=== PATIENT | male | born 1970 | race Caucasian/White ===

== ENCOUNTER 2021-02-03 11:34 | Day surgery (SDC) | payer BC, SELFPAY ==
[2021-02-03 12:04] VITALS: BP 119/82; PULSE 59; RESP 16; TEMP 36.6; O2SAT 100; BMI 24.1
[2021-02-03] MEDS: Lactated Ringers 1,000 ML 100 ML IV (12:11)
--- NOTE | 2021-02-03 13:00 | IMM_PTH ---
PATIENT: KERA WORLEY LOC: EN U#:[id number] AGE/SX: 50/M ROOM: RE02/03/[address]: Dr. John Hartmann DO : 1970 BED: DIS: 02/03/2021 SPEC #: [id number] RECD: 02/04/21 12:59 STATUS: CARLTON REQ #: [id number] JACKSON: 02/03/21 13:[address]: John Hartmann DEPT: IMMUNOHISTOCHEMISTRY RECD BY: Cami Lopez ENTERED: 02/04/21 12:59 SP TYPE: IMMUNO OTHR DR: Dr. Josh Storey MD Tissues: B - Stomach, NOS Procedures: H Pylori (initial) PHYSICIAN & INSTITUTION [place] [address] SPECIMEN INFORMATION: Tissue Source: B ? Gastric antrum biopsy Clinical Info: Abdominal pain, GERD, dysphagia Specimen Number: [id number] CPT code: 01967 METHODOLOGY: Deparaffinized sections of prefer/formalin-fixed tissue or PAP/DQ stained slides are incubated with monoclonal/polyclonal antibodies/oligonucleotide probes. Localization is made via biotin free immunoperoxidase method. Appropriate controls are performed and reacted as expected. Results on target cell population are indicated in the following table: RESULTS: ANTIBODY / CLONE RESULT Block B H Pylori (polyclonal) negative These tests were developed and their performance characteristics determined by [facility]. They may not have been cleared or approved by the U.S. Food and Drug Administration. The FDA has determined that such clearance or approval is not necessary. INTERPRETATION: B. Gastric antrum, biopsy: Negative for Helicobacter pylori organisms. AM:sofia 02/05/2021
--- NOTE | 2021-02-03 13:00 | EGD_PTH ---
PATIENT: KERA WORLEY LOC: NIKO U#:[id number] AGE/SX: 50/M ROOM: RE02/03/[address]: Dr. John Hartmann DO : 1970 BED: DIS: 02/03/2021 SPEC #: [id number] RECD: 02/03/21 16:37 STATUS: CARLTON REShilpi #: [id number] JACKSON: 02/03/21 13:[address]: John Hartmann DEPT: SURGICAL PATHOLOGY RECD BY: Charley [place] ENTERED: 02/04/21 11:23 SP TYPE: EGD BIOPSY MARA DR: Dr. Josh Storey MD Tissues: A - Duodenum, NOS B - Gastric mucous membrane C - Esophagus, NOS Procedures: Special Stain Group II Surgery Specimen Level IV Alcian Blue/PAS (control) HEADER OPERATION: EGD ? PH probe (MAC) PRE-OP DIAGNOSIS: Abdominal pain, GERD, dysphagia TISSUE SUBMITTED: A ? Duodenal biopsy, B ? Gastric antrum biopsy for H. pylori and path, C ? Esophageal biopsy MICROSCOPIC DIAGNOSIS A. Duodenum, biopsy: Focal vascular congestion. No evidence of duodenitis. B. Gastric antrum, biopsy: Chronic gastritis. See comment. C. Esophagus, biopsy: Gastroesophageal junctional mucosa with mild chronic inflammation. Changes of reflux. No evidence of goblet cell metaplasia. See comment. AM:sofia 02/05/2021 COMMENT B. The results of immunohistochemistry for Helicobacter pylori will be reported separately ([id number]). C. Alcian blue/PAS stain with matched control supports the above diagnosis. MICROSCOPIC DESCRIPTION Slides are reviewed. GROSS DESCRIPTION A - Received in fixative is one container labeled with the patient's name and designated duodenal biopsy. The specimen consists of two irregular fragments of light العراقي soft tissue that in aggregate measure 1 x 0.3 x 0.2 cm. The specimen is totally submitted in one cassette. B - Received in fixative is one container labeled with the patient's name and designated gastric antrum biopsy. The specimen consists of two irregular fragments of light العراقي soft tissue that in aggregate measure 0.7 x 0.3 x 0.1 cm. The specimen is totally submitted in one cassette. C - Received in fixative is one container labeled with the patient's name and designated esophagus biopsy. The specimen consists of multiple irregular fragments of light العراقي soft tissue that in aggregate measure 1 x 0.5 x 0.1 cm. The specimen is totally submitted in one cassette. / AM:sofia 02/04/21 TC:3 CPT: 93072 x3, 88580
--- NOTE | 2021-02-03 13:26 | HP.PCM_ITS ---
History and Physical Date of Admission: 02/03/21 HPI Details: CHUYITA WORLEY, is a 50 M who presents to the office today for evaluation of heartburn and inability to eat almost any foods. He said that this has been going on for 15 years. He did have a period where he was on Prevacid and it helped his heartburn. However it stopped working and he was not placed on a another medicine. At this time he is having esophageal dysphagia and a lot of abdominal pressure with bloating in his upper abdomen. He denies any chest pain or shortness of breath. He feels as though he gets a lump in the back of his throat when his heartburn gets really bad. He did see an outside straw hat brusher that told him that everything physically look fine in his esophagus and stomach. They did not mention a hiatal hernia or any other structural abnormalities. He saw a different straw hat brusher which diagnosed him with a possible hiatal hernia and told him that he should have a Kendall fundoplication but he would not be able to swallow. At this time he is getting so nauseous and bloated that he cannot even tolerate water. He still feels heartburn at this time despite not having eaten anything for the last 12 hours. He does not recall ever having any functional study such as a gastric emptying study or any study to assess the motility of his esophagus. All other 16 review of systems are negative except as per mentioned HPI. ROS ENT ENT: Positive for difficulty swallowing Gastro GI: Positive for abdominal pain, heartburn, difficulty swallowing and vomiting Musc Musculoskeletal: Positive for back pain Donato/Lymp Hematologic/Lymphatic: Positive for easy bruising Exam Const General: cooperative and comfortable Nutritional Appearance: average body habitus and well nourished [facility] Head: normal to inspection Ears: hearing grossly normal bilaterally Nose: external nose normal Face and sinus: normal facial exam Mouth: oral mucosae normal Throat: posterior oropharynx normal Eyes General: appearance normal, both eyes and all related structures Neck Neck: normal visual inspection Chest Chest palpation & inspection: normal inspection of the chest and normal palpation of entire chest wall Resp Effort & Inspection: normal respiratory effort Auscultation: Bilateral: Clear to Auscultation Cardio Palpation: normal PMI Rate: regular rate Rhythm: regular rhythm GI Inspection: normal to inspection Auscultation: normal bowel sounds Percussion: normal to percussion Palpation: no hepatosplenomegaly Skin General: no rashes or lesions noted Neuro General: patient alert Extrem General: normal to inspection Psych Affect: normal affect Assessment and Plan Assessment and Plan (1) Abdominal pain: Plan - Dr. Lopez Friend, DO: We will perform an endoscopy to evaluate his upper GI tract. The differential diagnosis for his abdominal pain could include a hiatal hernia, gastritis, duodenitis. We will also assess him for any signs of pyloric stenosis or poor emptying of the stomach. (2) GERD (gastroesophageal reflux disease): Status: Acute Plan - Dr. John Hartmann, DO: At this time we will not start him on any acid reducing medicine via prescription. He can take famotidine [id number] or Tums as needed. Since he is not on any heartburn medicine I would like to perform a Gutierrez test off of medicines. (3) Dysphagia: Status: Acute Plan - Dr. John Hartmann, DO: We will assess his esophagus for erosive esophagitis, eosinophilic esophagitis, tortuous esophagus or Schatzki's ring. He may undergo dilation. He was explained alternatives, risk, benefits including not withstanding bleeding, infection, sepsis, perforation, need for emergency to . He will have an ASA of 1. Coding Level of Care Code Off vis,new,level 4 Diagnoses Abdominal pain R10.9 GERD (gastroesophageal reflux disease) K21.9 Dysphagia R13.10
[2021-02-03 14:02] VITALS: BP 101/69; BP 119/82; PULSE 56; RESP 16; TEMP 36.4; O2SAT 98
[2021-02-03 14:07] VITALS: BP 119/82; BP 98/63; PULSE 55; RESP 16; O2SAT 95
--- NOTE | 2021-02-03 14:07 | OP.EGD_ITS ---
Patient Name: Evert Nicholson Procedure Date: 02/03/2021 1:35 PM Date of : 1970 Age: 50 Procedure: Upper GI endoscopy Indications: Dysphagia, Heartburn Providers: John Hartmann DO Referring MD: John Hartmann DO Medicines: Propofol per Anesthesia Patient Profile: This is a 50 year old male. Refer to note in patient chart for documentation of history and physical. Patient has symptoms. The symptoms first began within the past few months. Complications: No immediate complications. Procedure: Pre-Anesthesia Assessment: - Prior to the procedure, a History and Physical was performed, and patient medications and allergies were reviewed. The patient is competent. The risks and benefits of the procedure and the sedation options and risks were discussed with the patient. All questions were answered and informed consent was obtained. Patient identification and proposed procedure were verified by the physician in the pre-procedure area. Mental Status Examination: alert and oriented. Airway Examination: normal oropharyngeal airway and neck mobility. Respiratory Examination: clear to auscultation. CV Examination: normal. Prophylactic Antibiotics: The patient does not require prophylactic antibiotics. Prior Anticoagulants: The patient has taken no previous anticoagulant or antiplatelet agents. ASA Grade Assessment: II - A patient with mild systemic disease. After reviewing the risks and benefits, the patient was deemed in satisfactory condition to undergo the procedure. The anesthesia plan was to use moderate sedation / analgesia (conscious sedation). Immediately prior to administration of medications, the patient was re-assessed for adequacy to receive sedatives. The heart rate, respiratory rate, oxygen saturations, blood pressure, adequacy of pulmonary ventilation, and response to care were monitored throughout the procedure. The physical status of the patient was re-assessed after the procedure. After obtaining informed consent, the endoscope was passed under direct vision. Throughout the procedure, the patient's blood pressure, pulse, and oxygen saturations were monitored continuously. The Endoscope was introduced through the mouth, and advanced to the second part of duodenum. The upper GI endoscopy was accomplished without difficulty. The patient tolerated the procedure well. Moderate Sedation: Moderate (conscious) sedation was administered by the endoscopy nurse and supervised by the endoscopist. The patient's oxygen saturation, heart rate, blood pressure and response to care were monitored. Total physician intraservice time was 15 minutes. Scope In: 1:45:21 PM Scope Out: 1:57:36 PM Total Procedure Duration Time 0 hours 12 minutes 15 seconds Findings: LA Grade A (one or more mucosal breaks less than 5 mm, not extending between tops of 2 mucosal folds) esophagitis was found 34 to 42 cm from the incisors. Biopsies were taken with a cold forceps for histology. Verification of patient identification for the specimen was done. Estimated blood loss was minimal. A non-obstructing and moderate Schatzki ring was found in the lower third of the esophagus. The SPENCER capsule with delivery system was introduced through the mouth and advanced into the esophagus, such that the SPENCER pH capsule was positioned 37 cm from the incisors, which was 30 cm proximal to the GE junction. The SPENCER pH capsule was then deployed and attached to the esophageal mucosa. The delivery system was then withdrawn. Endoscopy was utilized for probe placement and diagnostic evaluation. Patchy mild inflammation characterized by erosions was found in the gastric antrum. Biopsies were taken with a cold forceps for histology. Verification of patient identification for the specimen was done. Estimated blood loss was minimal. Localized mild inflammation was found in the first portion of the duodenum. Biopsies were taken with a cold forceps for histology. Verification of patient identification for the specimen was done. Estimated blood loss was minimal. Impression: - LA Grade A reflux esophagitis. Biopsied. - Non-obstructing and moderate Schatzki ring. - Chronic gastritis. Biopsied. - Duodenitis. Biopsied. - The SPENCER pH capsule was deployed. Recommendation: - Discharge patient to home. - Resume previous diet. - Continue present medications. - Await pathology results. - Repeat upper endoscopy in 1 year for surveillance. - Return to GI office in 2 weeks. Procedure Code(s): --- Professional --- 97042, Esophagogastroduodenoscopy, flexible, transoral; with biopsy, single or multiple G0500, Moderate sedation services provided by the same physician or other qualified health patient care performing a gastrointestinal endoscopic service that sedation supports, requiring the presence of an independent trained observer to assist in the monitoring of the patient's level of consciousness and physiological status; initial 15 minutes of intra-service time; patient age 5 years or older (additional time may be reported with 73063, as appropriate) CPT copyright 2017 [employer]. All rights reserved. The codes documented in this report are preliminary and upon hollow core door frame assembler review may be revised to meet current compliance requirements. John Hartmann DO 02/03/2021 2:06:33 PM This report has been signed electronically. Number of Addenda: 1 Note Initiated On: 02/03/2021 1:35 PM Addendum Number: 1 Addendum Date: 12/17/2021 4:35:23 PM MAC was used instead of moderate sedation for this patient. John Hartmann DO 12/17/2021 4:35:30 PM This report has been signed electronically.
--- NOTE | 2021-02-03 14:07 | OP.CCLET_ITS ---
12/17/2021 Josh Storey [address] [place] [address] Re : Upper GI endoscopy procedure for Evert Nicholson Dear Dr. Storey This procedure was performed on Wednesday, February 03, 2021. My impressions and recommendations are as follows: Impressions : - LA Grade A reflux esophagitis. Biopsied. - Non-obstructing and moderate Schatzki ring. - Chronic gastritis. Biopsied. - Duodenitis. Biopsied. - The SPENCER pH capsule was deployed. Recommendations : - Discharge patient to home. - Resume previous diet. - Continue present medications. - Await pathology results. - Repeat upper endoscopy in 1 year for surveillance. - Return to GI office in 2 weeks. My findings are described in the full procedure note, which is enclosed. If I can be of further assistance, please feel free to contact me at . Sincerely, John Friend, 02/03/2021 2:06:33 PM This report has been signed electronically.
[2021-02-03 14:12] VITALS: BP 119/82; BP 98/77; PULSE 55; RESP 16; O2SAT 100
[2021-02-03 14:17] VITALS: BP 105/71; BP 119/82; PULSE 43; RESP 16; TEMP 36.7; O2SAT 100
[2021-02-03 14:41] VITALS: BP 119/82
== END 2021-02-03 14:48 | disposition home or self-care (01) ==
LOC: EN 11:35 → AC 11:36
PROVIDERS: PCP Family Medicine; Referring Provider Internal Medicine Gastroenterology; Visit Provider Internal Medicine Gastroenterology
PROC: (CPT 43239; principal; 2021-02-03 12:55)
DX: K21.00 Gastro-esophageal reflux disease with esophagitis, without bleeding (principal); K22.2 Esophageal obstruction; K29.50 Unspecified chronic gastritis without bleeding; K29.80 Duodenitis without bleeding; Z20.822 Contact with and (suspected) exposure to COVID-19
CPT/HCPCS: 43239; 87426; 88305; 88313; 88342; C9803; J7120; C1769; J2405

== ENCOUNTER 2021-10-26 10:55 | Day surgery (SDC) | payer BC, SELFPAY ==
--- NOTE | 2021-10-26 11:12 | HP.PCM_ITS ---
History and Physical Date of Admission: 10/26/21 ?KERA WORLEY, is a 50 M who presents to the office today for 2 month f/u esophagitis, gastritis, duodenitis, GERD, food intolerance. He continues on PPI therapy BID. He requests ondansetron be changed from regular tablets to the disintegrating tablets which he prefers, takes ondansetron 4 mg bid, unable to stop it, it adequately controls his nausea. He is having increased sensation of food sticking in proximal esophagus, not related to specific foods. Non- obstructing moderate Schatzki ring found in Jan 2021 when Gutierrez pH was placed. At last visit he reported he had been able to add some foods, but still can have sour stomach, bloating, gassy, and feeling of esophageal swelling after meal in evening. He hasn't added any additional foods to his rotation, but he did try BBQ sauce once and it didn't cause any flare of symptoms. Food he eats: poptarts, peanut butter sandwich, turkey sandwich, cheeseburgers, corn, peas and greenbeans. He reports his GI symptoms began about 15 yrs ago when he developed an allergy to onions; he vomits if he consumes onions. He also developed intolerance to citric acid which also causes vomiting. EGD 02/09/21: Schatzki ring; Gutierrez pH study was consistent with reflux, biopsies were consistent with reflux. Not taking any NSAIDS. Uses tylenol prn for GARCIA but rarely needs it. ROS Const Constitutional: No fatigue ENT ENT: No difficulty swallowing Gastro GI: Positive for nausea/dyspepsia; No abdominal pain, belching, bloating, change in bowel habits, change in stool character, coffee ground emesis, constipation, cramping, diarrhea, heartburn, difficulty swallowing, feeling full early, excessive flatus, incontinent of stools, Vomiting blood/hematemesis, Blood in stool, loose stools, Black,tarry stools, pain with swallowing, vomiting or other Musc Musculoskeletal: No joint pain Skin Skin: No yellowing of the eye or itchy eyes Psych Psychiatric: No anxiety and No depression Endo Endocrine: No fatigue Aller/Imm Allergy/Immunologic: No itchy eyes Donato/Lymp Hematologic/Lymphatic: No easy bleeding or easy bruising Exam Const General: cooperative, healthy appearing, well developed and well groomed Quality Reporting Tobacco Screening ([facility] 138) Smoking Status: Never smoker Assessment and Plan Assessment and Plan (1) Dysphagia: ?Status:?Acute (2) GERD (gastroesophageal reflux disease): ?Status:?Acute (3) Food intolerance in adult: ?Status:?Acute ? ? ? Orders:?Orders: ? Esophagus Dual Contrast Today R13.10 ?Plan - Sydney Severino FUNDING COORDINATOR, FUNDING COORDINATOR-C: Continue PPI therapy, continue ondansetron. Get esophagram to eval for cricopharyngeal achalasia. Get repeat EGD to eval/treat esophageal stricture; will also schedule screening colonoscopy at same time. F/u 2 wks after endoscopy. Plan Details Other Medications: ?New: ? ondansetron 4 mg? PO BID 60 tabs 2RF ?Discontinued: ? pantoprazole ?? Discontinued Reason:? Order Completed 40 mg? PO BID 60 tabs 2RF ? ? ? ondansetron HCl ?? Discontinued Reason:? Pt no longer taking 4 mg? PO Q8H 90 tabs 0RF ? ? I have re-examined the patient. There are no clinical changes since date of exam.
[2021-10-26 11:18] VITALS: BP 119/70; PULSE 60; RESP 16; TEMP 36.9; O2SAT 100; BMI 22.8
[2021-10-26] MEDS: Lactated Ringers 1,000 ML 30 ML IV (11:32)
--- NOTE | 2021-10-26 12:15 | EGD_PTH ---
PATIENT: KERA WORLEY LOC: EN U#:[id number] AGE/SX: 50/M ROOM: RE10/26/[address]: Dr. John Hartmann DO : 1970 BED: DIS: 10/26/2021 SPEC #: [id number] RECD: 10/26/21 13:56 STATUS: CARLTON TIFFANI #: [id number] JACKSON: 10/26/21 12:[address]: John Hartmann DEPT: SURGICAL PATHOLOGY RECD BY: Charley Grove ENTERED: 10/27/21 08:04 SP TYPE: EGD BIOPSY DONN DR: Dr. Josh Storey MD Tissues: A - Esophagus, NOS B - Esophagus, NOS Procedures: Special Stain Group II Surgery Specimen Level IV Alcian Blue/PAS (control) HEADER OPERATION: Colonoscopy, EGD with dilation and biopsies (MAC) PRE-OP DIAGNOSIS: Dysphagia, GERD TISSUE SUBMITTED: A ? Distal esophagus biopsy, B ? Random esophagus biopsy MICROSCOPIC DIAGNOSIS A. Distal esophagus, biopsy: Gastroesophageal junctional mucosa with chronic inflammation. Focal changes of reflux. No evidence of goblet cell metaplasia. See comment. B. Esophagus, random biopsy: No pathologic change. AM:sofia 10/28/2021 COMMENT A. Alcian blue/PAS stain with matched control supports the above diagnosis. MICROSCOPIC DESCRIPTION Slides are reviewed. GROSS DESCRIPTION A - Received in fixative is one container labeled with the patient's name and designated distal esophagus biopsy. The specimen consists of two irregular fragments of light العراقي soft tissue that in aggregate measure 0.8 x 0.3 x 0.1 cm. The specimen is totally submitted in one cassette. B - Received in fixative is one container labeled with the patient's name and designated random esophagus biopsy. The specimen consists of multiple irregular fragments of light العراقي soft tissue that in aggregate measure 1 x 0.5 x 0.1 cm. The specimen is totally submitted in one cassette. / SJ:sofia 10/27/2021 TC:3 [facility]: [id number], [id number]
[2021-10-26 12:35] VITALS: BP 119/70; BP 94/53; PULSE 60; RESP 16; TEMP 36.2; O2SAT 99
--- NOTE | 2021-10-26 12:39 | OP.EGD_ITS ---
Patient Name: Evert Nicholson Procedure Date: 10/26/2021 11:54 AM Date of : 1970 Age: 50 Procedure: Upper GI endoscopy Indications: Dysphagia Providers: John Hartmann DO Medicines: Monitored Anesthesia Care Patient Profile: This is a 50 year old male. Refer to note in patient chart for documentation of history and physical. He is status post EGD for Bowie's biopsy within the past six months. Complications: No immediate complications. Procedure: Pre-Anesthesia Assessment: - Prior to the procedure, a History and Physical was performed, and patient medications and allergies were reviewed. The risks and benefits of the procedure and the sedation options and risks were discussed with the patient. All questions were answered and informed consent was obtained. Patient identification and proposed procedure were verified by the physician in the pre-procedure area. Mental Status Examination: alert and oriented. Airway Examination: normal oropharyngeal airway and neck mobility. Respiratory Examination: clear to auscultation. CV Examination: normal. Prophylactic Antibiotics: The patient does not require prophylactic antibiotics. Prior Anticoagulants: The patient has taken no previous anticoagulant or antiplatelet agents. After reviewing the risks and benefits, the patient was deemed in satisfactory condition to undergo the procedure. The anesthesia plan was to use moderate sedation / analgesia (conscious sedation). Immediately prior to administration of medications, the patient was re-assessed for adequacy to receive sedatives. The heart rate, respiratory rate, oxygen saturations, blood pressure, adequacy of pulmonary ventilation, and response to care were monitored throughout the procedure. The physical status of the patient was re-assessed after the procedure. After obtaining informed consent, the endoscope was passed under direct vision. Throughout the procedure, the patient's blood pressure, pulse, and oxygen saturations were monitored continuously. The pediatric colonoscope was introduced through the mouth, and advanced to the second part of duodenum. The upper GI endoscopy was accomplished without difficulty. The patient tolerated the procedure well. Scope In: 12:07:12 PM Scope Out: 12:14:04 PM Total Procedure Duration Time 0 hours 6 minutes 52 seconds Findings: Non-severe esophagitis with no bleeding was found 37 to 39 cm from the incisors. Biopsies were taken with a cold forceps for histology. Verification of patient identification for the specimen was done. Estimated blood loss was minimal. A moderate Schatzki ring was found in the distal esophagus. A guidewire was placed and the scope was withdrawn. Dilation was performed with a Savary dilator with no resistance at 60 Fr. The dilation site was examined following endoscope reinsertion and showed moderate improvement in luminal narrowing. Estimated blood loss: none. The entire examined stomach was normal. The cardia and gastric fundus were normal on retroflexion. The second portion of the duodenum was normal. Impression: - Non-severe chronic esophagitis. Biopsied. - Moderate Schatzki ring. Dilated. - Normal stomach. - Normal second portion of the duodenum. Recommendation: - Discharge patient to home. - Resume previous diet. - Continue present medications. - Await pathology results. Procedure Code(s): --- Professional --- 11773, Esophagogastroduodenoscopy, flexible, transoral; with insertion of guide wire followed by passage of dilator(s) through esophagus over guide wire 97011, 59,51, Esophagogastroduodenoscopy, flexible, transoral; with biopsy, single or multiple CPT copyright 2017 [employer]. All rights reserved. The codes documented in this report are preliminary and upon dispersion mixer review may be revised to meet current compliance requirements. John Hartmann DO 10/26/2021 12:39:14 PM This report has been signed electronically. Number of Addenda: 1 Note Initiated On: 10/26/2021 11:54 AM Addendum Number: 1 Addendum Date: 01/20/2022 6:23:02 AM MAC was used as sedation for this procedure. John Hartmann DO 01/20/2022 6:23:06 AM This report has been signed electronically.
[2021-10-26 12:40] VITALS: BP 102/64; BP 119/70; PULSE 52; RESP 16; O2SAT 99
--- NOTE | 2021-10-26 12:40 | OP.CCLET_ITS ---
01/20/2022 Josh Storey [address] [place] [address] Re : Upper GI endoscopy procedure for Evert Nicholson Dear Dr. Storey This procedure was performed on Tuesday, October 26, 2021. My impressions and recommendations are as follows: Impressions : - Non-severe chronic esophagitis. Biopsied. - Moderate Schatzki ring. Dilated. - Normal stomach. - Normal second portion of the duodenum. Recommendations : - Discharge patient to home. - Resume previous diet. - Continue present medications. - Await pathology results. My findings are described in the full procedure note, which is enclosed. If I can be of further assistance, please feel free to contact me at . Sincerely, John Hartmann, 10/26/2021 12:39:14 PM This report has been signed electronically.
--- NOTE | 2021-10-26 12:44 | OP.COLON_ITS ---
Patient Name: Evert Nicholson Procedure Date: 10/26/2021 12:14 PM Date of : 1970 Age: 50 Procedure: Colonoscopy Indications: Screening for colorectal malignant neoplasm Providers: John Hartmann DO Medicines: Monitored Anesthesia Care Patient Profile: This is a 50 year old male. Refer to note in patient chart for documentation of history and physical. He is status post EGD for Bowie's biopsy within the past six months. Last Colonoscopy: none. The patient's first colonoscopy is today. Complications: No immediate complications. Procedure: Pre-Anesthesia Assessment: - Prior to the procedure, a History and Physical was performed, and patient medications and allergies were reviewed. The risks and benefits of the procedure and the sedation options and risks were discussed with the patient. All questions were answered and informed consent was obtained. Patient identification and proposed procedure were verified by the physician in the pre-procedure area. Mental Status Examination: alert and oriented. Airway Examination: normal oropharyngeal airway and neck mobility. Respiratory Examination: clear to auscultation. CV Examination: normal. Prophylactic Antibiotics: The patient does not require prophylactic antibiotics. Prior Anticoagulants: The patient has taken no previous anticoagulant or antiplatelet agents. After reviewing the risks and benefits, the patient was deemed in satisfactory condition to undergo the procedure. The anesthesia plan was to use moderate sedation / analgesia (conscious sedation). Immediately prior to administration of medications, the patient was re-assessed for adequacy to receive sedatives. The heart rate, respiratory rate, oxygen saturations, blood pressure, adequacy of pulmonary ventilation, and response to care were monitored throughout the procedure. The physical status of the patient was re-assessed after the procedure. After I obtained informed consent, the scope was passed under direct vision. Throughout the procedure, the patient's blood pressure, pulse, and oxygen saturations were monitored continuously. The pediatric colonoscope was introduced through the anus and advanced to the terminal ileum. The colonoscopy was performed without difficulty. The patient tolerated the procedure well. The quality of the bowel preparation was good. Scope In: 12:17:24 PM Scope Withdrawal Time 0 hours 9 minutes 23 seconds Scope Out: 12:30:00 PM Total Procedure Duration Time 0 hours 12 minutes 36 seconds Findings: The perianal and digital rectal examinations were normal. Two small-mouthed diverticula were found in the sigmoid colon. The exam was otherwise without abnormality on direct and retroflexion views. Impression: - Diverticulosis in the sigmoid colon. - The examination was otherwise normal on direct and retroflexion views. - No specimens collected. Recommendation: - Discharge patient to home. - Resume previous diet. - Continue present medications. - Repeat colonoscopy in 10 years for screening purposes. - Return to GI office. Procedure Code(s): --- Professional --- G0121, Colorectal cancer screening; colonoscopy on individual not meeting criteria for high risk CPT copyright 2017 [employer]. All rights reserved. The codes documented in this report are preliminary and upon circulation librarian review may be revised to meet current compliance requirements. John Hartmann DO 10/26/2021 12:43:46 PM This report has been signed electronically. Number of Addenda: 1 Note Initiated On: 10/26/2021 12:14 PM Addendum Number: 1 Addendum Date: 01/20/2022 6:23:17 AM MAC was used as sedation for this procedure. John Hartmann DO 01/20/2022 6:23:24 AM This report has been signed electronically.
[2021-10-26 12:45] VITALS: BP 100/65; BP 119/70; PULSE 52; RESP 16; O2SAT 99
--- NOTE | 2021-10-26 12:45 | OP.CCLET_ITS ---
01/20/2022 Josh [address]y [address] [place] [address] Re : Colonoscopy procedure for Evert Nicholson Dear Dr. Storey This procedure was performed on Tuesday, October 26, 2021. My impressions and recommendations are as follows: Impressions : - Diverticulosis in the sigmoid colon. - The examination was otherwise normal on direct and retroflexion views. - No specimens collected. Recommendations : - Discharge patient to home. - Resume previous diet. - Continue present medications. - Repeat colonoscopy in 10 years for screening purposes. - Return to GI office. My findings are described in the full procedure note, which is enclosed. If I can be of further assistance, please feel free to contact me at . Sincerely, John Hartmann, 10/26/2021 12:43:46 PM This report has been signed electronically.
[2021-10-26 12:52] VITALS: BP 100/67; BP 119/70; PULSE 52; RESP 16; TEMP 37; O2SAT 100
[2021-10-26 13:08] VITALS: BP 119/70
== END 2021-10-26 13:11 | disposition home or self-care (01) ==
LOC: EN 10:56 → AC 10:57
PROVIDERS: PCP Family Medicine; Referring Provider Internal Medicine Gastroenterology; Visit Provider Internal Medicine Gastroenterology
PROC: 0DJD8ZZ Inspection of Lower Intestinal Tract, Via Natural or Artificial Opening Endoscopic (ICD-10-PCS; CPT 45378; principal; 2021-10-26 12:10)
DX: Z12.11 Encounter for screening for malignant neoplasm of colon (principal); K57.30 Diverticulosis of large intestine without perforation or abscess without bleeding; K22.2 Esophageal obstruction; K21.00 Gastro-esophageal reflux disease with esophagitis, without bleeding; R13.10 Dysphagia, unspecified; Z79.899 Other long term (current) drug therapy
CPT/HCPCS: 45378; 43248; 43239; 88305; 88313; J7120; C1769; J2405

== ENCOUNTER → 2022-06-01 | Outpatient (CLI) | payer BC, SELFPAY ==
--- NOTE | 2022-06-01 12:47 | VDLE_ITS ---
Reason For Study: Pain RIGHT LEFT CFV is compressible, spontaneous, phasic, GSV is normal. competent and demonstrates normal CFV is compressible, spontaneous, phasic, augmentation. competent, and demonstrates normal Procedure augmentation. This is a venous duplex using B-mode, color FV is compressible, spontaneous, phasic, flow and spectral Doppler. competent and demonstrates normal Exam performed in department. augmentation. The exam was diagnostic. POP V is compressible, spontaneous, phasic, A preliminary report was called and/or faxed competent and demonstrates normal to Dr. Weber. augmentation. T/P Trunk is compressible. PTV is compressible. LT PerV is compressible. Multiple Varicose Veins noted in prox/mid Lt Calf. All were compressible. VL/Venous Duplex US, Unilateral Interpretation Summary Deep veins of the left lower extremity are patent and compressible segmentally. There is no evidence of left lower extremity deep vein thrombosis. The left great saphenous vein britt ears patent and compressible segmentally. Ordering Physician: Stephanie Weber Referring Physician: Stephanie Weber Performed By: Harvey Price RVRaheem
== END | disposition home or self-care (01) ==
LOC: CVS 12:46
PROVIDERS: PCP Family Medicine; Referring Provider Family Medicine; Visit Provider Family Medicine
DX: M79.662 Pain in left lower leg (principal)
CPT/HCPCS: 93971

== ENCOUNTER → 2022-06-01 | Outpatient (CLI) | payer BC, SELFPAY ==
[2022-06-01 12:27] LABS: Absolute Lymphocyte Count 1.35 X10^3/uL (0.83-4.51); Absolute Neutrophil Count 4.7 X10^3/uL (2.0-7.7); Basophil# 0.06 X10^3/uL; Basophil% 0.9 % (0-1); Eosinophil# 0.08 X10^3/uL; Eosinophils% 1.2 % (0-5); Hematocrit 38.4 % (40-54); Hemoglobin 12.9 g/dL (13.0-16.5); Lymphocyte # 1.35 X10^3/ul (0.83-4.51); Lymphocyte % 20.4 % (19-41); Mean Corp Hgb Conc 33.6 g/dL (32-36); Mean Corpuscular Hgb 30.5 pg (27.0-32.0); Mean Corpuscular Volume 90.8 fL (80-94); Mean Platelet Vol. 9.6 fl (6.2-12.0); Monocyte# 0.41 X10^3/uL; Monocyte% 6.2 % (0-10); NRBC Flagged by Analyzer 0 % (0-5); Platelet Count 223 K/mm3 (150-450); RBC Distribution Width CV 12.6 % (11.6-14.6); RBC Distribution Width SD 41.9 fl (35.1-43.9); Red Blood Count 4.23 M/mm3 (4.6-6.2); White Blood Count 6.6 K/mm3 (4.4-11.0)
[2022-06-01 12:29] LABS: Erythrocyte Sedimentation Rate 7 mm/hr (0-20)
[2022-06-01 13:00] LABS: ALB/GLOB Ratio 1.3 RATIO (0.9-2.4); AST(SGOT) 17 U/L (15-37); Alanine Aminotransfer ALT/SGPT 14 U/L (16-61); Albumin, Serum 3.9 g/dL (3.2-5.0); Alkaline Phosphatase 60 U/L (45-117); Anion Gap 7 (5-15); BUN 13 mg/dL (7-18); BUN/Creat Ratio 11.3 RATIO (10-20); Calcium,Total 9.4 mg/dL (8.5-10.1); Chloride 102 mmol/L (98-107); Creatinine, Serum 1.15 mg/dL (0.70-1.30); EST Glomerular Filtration Rate 71 mL/min (>60); Est Glom Filt Rate - Afr Amer 86 mL/min (>60); Globulin 3.1 g/dL (2.2-4.2); Glucose 110 mg/dL (74-106); Potassium 4.5 mmol/L (3.5-5.1); Sodium Level 137 mmol/L (136-145); Thyroid Stim Hormone (TSH) 0.82 uIU/mL (0.358-3.74)
== END | disposition home or self-care (01) ==
LOC: MFPLAB 10:31
PROVIDERS: PCP Family Medicine; Referring Provider Family Medicine; Visit Provider Family Medicine
DX: R23.3 Spontaneous ecchymoses (principal)
CPT/HCPCS: 36415; 80053; 84443; 85025; 85652

== ENCOUNTER → 2024-08-06 | Outpatient (CLI) | payer BC, SELFPAY ==
--- NOTE | 2024-08-06 09:01 | RAD_ITS ---
PROCEDURE: CERV SPINE OBL/FLEX/EXT COMP 08/06/2024 REASON FOR EXAM: NECK PAIN TECHNIQUE: 7 views of the cervical spine. AP, lateral, flexion-extension, bilateral oblique and 2 open-mouth odontoid views, 8 total images COMPARISON: None available FINDINGS: Cervical spine is visualized on the lateral view from the skull base to the top of T1. No fracture or malalignment. No prevertebral soft tissue swelling. Mild disc space narrowing C4-5. [id number] disc space narrowing C5-6, C6-7 and C7-T1. Degree of motion on the extension appears within limits. The flexion degree of movement appears decreased from expected. No evidence of instability. There appears to be possible moderate foraminal narrowing on the right at C3-4 on the oblique view due to facet change. Visualized apices appear clear. RAD/Cerv Spine Obl/Flex/Ext Comp IMPRESSION: Multilevel spondylosis/discogenic change as above. Reading Location: [id number]
[2024-08-06 11:03] LABS: Absolute Lymphocyte Count 1.56 X10^3/uL (0.83-4.51); Absolute Neutrophil Count 2.1 X10^3/uL (2.0-7.7); Basophil# 0.07 X10^3/uL; Basophil% 1.7 % (0-1); Eosinophil# 0.11 X10^3/uL; Eosinophils% 2.6 % (0-5); Hematocrit 40.8 % (40-54); Hemoglobin 14.4 g/dL (13.0-16.5); Lymphocyte # 1.56 X10^3/ul (0.83-4.51); Lymphocyte % 36.8 % (19-41); Mean Corp Hgb Conc 35.3 g/dL (32-36); Mean Corpuscular Hgb 30.8 pg (27.0-32.0); Mean Corpuscular Volume 87.4 fL (80-94); Mean Platelet Vol. 9.7 fl (6.2-12.0); Monocyte# 0.38 X10^3/uL; NRBC Flagged by Analyzer 0 % (0-5); Neutrophil # 2.11 X10^3/uL (2.7-7.7); Neutrophil % 49.7 % (47-70); Platelet Count 240 K/mm3 (150-450); RBC Distribution Width CV 12.7 % (11.6-14.6); RBC Distribution Width SD 40.9 fl (35.1-43.9); Red Blood Count 4.67 M/mm3 (4.6-6.2); White Blood Count 4.2 K/mm3 (4.4-11.0)
[2024-08-06 12:02] LABS: ALB/GLOB Ratio 2.1 RATIO (0.9-2.4); AST(SGOT) 21 U/L (<=37); Alanine Aminotransfer ALT/SGPT 20 U/L (<=46); Albumin, Serum 4.5 g/dL (3.5-5.0); Alkaline Phosphatase 56 U/L (40-129); Anion Gap 8 (5-15); BUN 11 mg/dL (4-19); BUN/Creat Ratio 10.6 RATIO (10-20); Calcium,Total 9.6 mg/dL (7.6-11.0); Carbon Dioxide 28.1 mmol/L (21.0-32.0); Chloride 102 mmol/L (98-108); Creatinine, Serum 1.08 mg/dL (0.70-1.20); EST Glomerular Filtration Rate 83 (>60); Globulin 2.2 g/dL (2.2-4.2); Glucose 108 mg/dL (70-99); Protein, Total 6.7 g/dL (5.9-8.4); Sodium Level 138 mmol/L (133-145); Total Bilirubin 0.53 mg/dL (0.00-1.30)
[2024-08-06 12:14] LABS: Thyroid Stim Hormone (TSH) 0.961 uIU/mL (0.300-4.200); Vitamin D,25 Hydroxy 15.5 ng/mL (30-100)
== END | disposition home or self-care (01) ==
LOC: MTLAB 08:34
PROVIDERS: PCP Family Medicine; Referring Provider Family Medicine; Visit Provider Family Medicine
DX: Z13.220 Encounter for screening for lipoid disorders (principal); Z13.1 Encounter for screening for diabetes mellitus; R53.83 Other fatigue; R51.9 Headache, unspecified; G47.10 Hypersomnia, unspecified; M54.2 Cervicalgia
CPT/HCPCS: 36415; 72052; 80053; 82306; 84443; 85025